=== PATIENT | male | born 1980 | race Two or more races ===

== ENCOUNTER 2023-06-11 07:16 | Inpatient (IN) | payer OTHER ==
[2023-06-11] MEDS ORDERED: ACETAMINOPHEN 1000 MG/100 ML BAG IVPB ONE (07:43)
[2023-06-11] MEDS ORDERED: ACETAMINOPHEN INJECTION 100 ML IVPB ONE (07:48)
[2023-06-11] MEDS ORDERED: ACETAMINOPHEN 325 MG TABLET (FP) ONE (07:52)
[2023-06-11] MEDS ORDERED: ACETAMINOPHEN 500 MG TABLET (FP) PO ONE (07:53)
[2023-06-11 11:40] LABS: BASO % 0.6 % (0-2.0); EOS % 0.3 % (0-4.5); HEMOGLOBIN 14.9 GM/dL (11.7-16.9); LYMPH % 10.5 % (8-40); MCH 30.3 pg (25.7-33.7); MCHC 34.7 g/dl (32.0-35.9); MEAN CELL VOLUME 87.3 fl (80-96); MEAN PLT VOLUME 9.1 fl (7.5-11.1); MONO % 5.5 % (3.8-10.2); NEUT % 83.1 % (42.8-82.8); PLATELET COUNT 308 10^3/uL (134-434); RBC 4.93 M/mm3 (4.00-5.60); RDW 13.7 % (11.9-15.9); WHITE BLOOD COUNT 13.1 K/mm3 (4.0-10.0)
[2023-06-11 11:47] LABS: INR 1.04 (0.83-1.09); PROTHROMBIN TIME (PATIENT) 12.1 SEC (9.7-13.0)
[2023-06-11 11:50] LABS: ACTIVATED PTT 32.4 SECONDS (25.2-36.5)
[2023-06-11 12:13] LABS: POTASSIUM 4.4 mmol/L (3.5-5.1)
[2023-06-11 12:14] LABS: CALCIUM 9.2 mg/dL (8.5-10.1)
[2023-06-11 12:15] LABS: ALBUMIN 4.3 g/dl (3.4-5.0); BLOOD UREA NITROGEN 11.7 mg/dL (7-18)
[2023-06-11 12:18] LABS: CREATININE 0.8 mg/dL (0.55-1.3)
[2023-06-11 12:20] LABS: BILIRUBIN,TOTAL 0.4 mg/dL (0.2-1); TOT PROT 7.7 g/dl (6.4-8.2)
[2023-06-11] MEDS: morphine SULFATE 4 MG/ML VIAL IVPUSH PRN (19:47)
[2023-06-11] MEDS: ACETAMINOPHEN 1000 MG/100 ML BAG IVPB PRN (20:28)
[2023-06-11 23:07] VITALS: BMI 25.4
[2023-06-12] MEDS: morphine SULFATE 4 MG/ML VIAL IVPUSH PRN (04:17)
[2023-06-12 10:31] LABS: BASO % 0.8 % (0-2.0); EOS % 2.3 % (0-4.5); HEMATOCRIT 43.5 % (35.4-49); HEMOGLOBIN 14.5 GM/dL (11.7-16.9); LYMPH % 30.1 % (8-40); MCH 29.6 pg (25.7-33.7); MCHC 33.4 g/dl (32.0-35.9); MEAN CELL VOLUME 88.6 fl (80-96); MEAN PLT VOLUME 8.8 fl (7.5-11.1); MONO % 7.3 % (3.8-10.2); NEUT % 59.5 % (42.8-82.8); PLATELET COUNT 300 10^3/uL (134-434); RBC 4.91 M/mm3 (4.00-5.60); RDW 13.7 % (11.9-15.9); WHITE BLOOD COUNT 8.4 K/mm3 (4.0-10.0)
[2023-06-12] MEDS: ACETAMINOPHEN 1000 MG/100 ML BAG IVPB PRN (10:38)
[2023-06-12 10:57] LABS: CALCIUM 8.9 mg/dL (8.5-10.1)
[2023-06-12 10:58] LABS: BLOOD UREA NITROGEN 14.6 mg/dL (7-18)
[2023-06-12 11:00] LABS: CREATININE 0.8 mg/dL (0.55-1.3)
[2023-06-12 11:02] LABS: BILIRUBIN,TOTAL 0.9 mg/dL (0.2-1); TOT PROT 7.3 g/dl (6.4-8.2)
[2023-06-12] MEDS ORDERED: ROPIVACAINE HCL 0.5% 30ML VIAL ONE (13:55)
[2023-06-12] MEDS ORDERED: MIDAZOLAM HCL 2 MG/2 ML SINGLE DOSE VIAL ONE (13:56)
[2023-06-12] MEDS ORDERED: ROCURONIUM BROMIDE 50 MG/5 ML SYRINGE ONE (14:34)
[2023-06-12] MEDS ORDERED: SUCCINYLCHOLINE CHLORIDE 200 MG/10 ML SYRINGE ONE (14:34)
[2023-06-12] MEDS ORDERED: SUGAMMADEX SODIUM 200 MG/2 ML VIAL ONE (15:59)
[2023-06-12] MEDS ORDERED: morphine SULFATE 4 MG/ML VIAL IVPUSH PRN (16:20)
[2023-06-12] MEDS ORDERED: ONDANSETRON 4 MG/2 ML VIAL IVPUSH PRN (16:22)
[2023-06-12] MEDS ORDERED: LACTATED RINGERS SOLUTION 1,000 ML IV SCH (16:30)
[2023-06-12] MEDS: CEFAZOLIN SODIUM 2 GM in DEXTROSE 5%-WATER 100 ML IVPB SCH (22:20)
[2023-06-12] MEDS ORDERED: CEFAZOLIN SODIUM 2 GM in DEXTROSE 5%-WATER 100 ML IVPB SCH (23:00)
[2023-06-13] MEDS ORDERED: CEFAZOLIN SODIUM 2 GM VIAL ONE (05:37)
[2023-06-13] MEDS: CEFAZOLIN SODIUM 2 GM in DEXTROSE 5%-WATER 100 ML IVPB SCH (06:40)
[2023-06-13 09:15] VITALS: BP 131/72; PULSE 95; RESP 18; TEMP 98.3
[2023-06-13] MEDS ORDERED: KETOROLAC TROMETHAMINE 15 MG/ML VIAL IVPUSH PRN ×3 (10:41→11:03)
[2023-06-13] MEDS ORDERED: morphine SULFATE 4 MG/ML VIAL IVPUSH PRN (11:03)
[2023-06-13 11:16] LABS: POTASSIUM 3.9 mmol/L (3.5-5.1)
[2023-06-13 11:21] LABS: ALBUMIN 3.6 g/dl (3.4-5.0); CALCIUM 8.5 mg/dL (8.5-10.1)
[2023-06-13 11:22] LABS: BLOOD UREA NITROGEN 13.1 mg/dL (7-18)
[2023-06-13 11:26] LABS: CREATININE 0.9 mg/dL (0.55-1.3)
[2023-06-13 11:27] LABS: BILIRUBIN,TOTAL 0.4 mg/dL (0.2-1)
== END 2023-06-13 14:21 | disposition home or self-care (01) | DRG 315 ==
LOC: JER 07:16 → JERBED 10:25 → J5S 18:53
PROVIDERS: ADMIT Internal Medicine; ATTEND Internal Medicine
PROC: 0PSF04Z Reposition Right Humeral Shaft with Internal Fixation Device, Open Approach (ICD-10-PCS; principal; 2023-06-12 14:00)
DX: S42.341A Displaced spiral fracture of shaft of humerus, right arm, initial encounter for closed fracture (principal); F17.210 Nicotine dependence, cigarettes, uncomplicated; R74.01 Elevation of levels of liver transaminase levels; W19.XXXA Unspecified fall, initial encounter; Y93.9 Activity, unspecified; Y92.89 Other specified places as the place of occurrence of the external cause; Y99.9 Unspecified external cause status
CPT/HCPCS: 36415; 73060-TC-RT-FY; 73070-TC-RT-FY; 73502-TC-RT-FY; 76000-TC-FY; 80053; 85025; 85610; 85730; 86704; 86705; 86708; 86803; 86850; 86900; 86901; 87340; 87516; 87517; 94760; 97116-GP; 97162-GP; 99285-25; C1713